=== PATIENT | female | born 1960 | race African-American/Black ===

== ENCOUNTER 2017-03-16 20:31 | Inpatient (IN) | payer OTHER ==
[2017-03-16 21:01] VITALS: BMI 31.1
[2017-03-16] MEDS ORDERED: diphenhydrAMINE HCL 50 MG CAPSULE PO PRN (21:03)
[2017-03-16] MEDS ORDERED: LOPERAMIDE HCL 2 MG CAPSULE PO PRN (21:03)
[2017-03-16] MEDS ORDERED: MAGNESIUM CITRATE 300 ML BOTTLE PO PRN (21:03)
[2017-03-16] MEDS ORDERED: NICOTINE POLACRILEX 2 MG GUM BUC PRN (21:03)
[2017-03-16] MEDS ORDERED: MAG HYDROX/AL HYDROX/SIMETH 30 ML UNIT-DOSE CUP PO PRN (21:03)
[2017-03-16] MEDS ORDERED: chlordiazePOXIDE HCL 25 MG CAPSULE PO ONE (21:03)
[2017-03-16] MEDS ORDERED: chlordiazePOXIDE HCL 25 MG CAPSULE PO PRN (21:03)
[2017-03-16] MEDS ORDERED: hydrOXYzine PAMOATE 50 MG CAPSULE (FP) PO PRN (21:03)
[2017-03-16] MEDS ORDERED: P-EPHED 60MG/TRIPROLIDI 2.5MG TABLET PO PRN (21:03)
[2017-03-16] MEDS ORDERED: MENTHOL/PHENOL 1 EACH UD MM PRN (21:03)
[2017-03-16] MEDS ORDERED: guaiFENesin/D-METHORPHAN HB 10 ML UNIT-DOSE CUPS PO PRN (21:03)
[2017-03-16] MEDS ORDERED: MAGNESIUM HYDROX 2400MG/30ML ORAL SUSPENSION 30 ML CUP PO PRN (21:03)
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
[2017-03-16] MEDS ORDERED: ONDANSETRON *ODT* 4 MG TABLET SL PRN (21:09)
[2017-03-16] MEDS: THIAMINE HCL 100 MG TABLET (FP) PO SCH (22:45)
[2017-03-16] MEDS: CYCLOBENZAPRINE HCL 10 MG TABLET (FP) PO PRN (22:45)
[2017-03-16] MEDS: RANITIDINE HCL 150 MG TABLET (FP) PO SCH (22:45)
[2017-03-16] MEDS: GABAPENTIN 100 MG CAPSULE (FP) PO SCH (22:45)
[2017-03-16] MEDS: chlordiazePOXIDE HCL 25 MG CAPSULE PO SCH (22:45)
[2017-03-16] MEDS: ACETAMINOPHEN 325 MG TABLET (FP) PO PRN (22:50)
[2017-03-17 00:39] LABS: URINE APPEARANCE SLCLOUDY; URINE BILIRUBIN NEGATIVE (NEGATIVE); URINE BLOOD NEGATIVE (NEGATIVE); URINE COLOR LTYELLOW; URINE GLUCOSE (UA) NEGATIVE (NEGATIVE); URINE KETONE NEGATIVE (NEGATIVE); URINE LEUK ESTERASE NEGATIVE (NEGATIVE); URINE NITRITE NEGATIVE (NEGATIVE); URINE PROTEIN NEGATIVE (NEGATIVE); URINE UROBILINOGEN NEGATIVE mg/dL (0.2-1.0)
[2017-03-17] MEDS: chlordiazePOXIDE HCL 25 MG CAPSULE PO SCH ×4 (06:11→22:28)
--- NOTE | 2017-03-17 09:20 | EKG ---
Test Reason : Blood Pressure : / mmHG Vent. Rate : 077 BPM Atrial Rate : 077 BPM P-R Int : 120 ms QRS Dur : 082 ms QT Int : 392 ms P-R-T Axes : 069 041 047 degrees QTc Int : 443 ms NORMAL SINUS RHYTHM NO PREVIOUS ECGS AVAILABLE Confirmed by TREMAYNE MEDELLIN MD ([id number]) on 03/17/2017 9:19:33 AM Referred By: Confirmed By:TREMAYNE MEDELLIN MD
[2017-03-17 10:22] LABS: MCH 30.1 pg (25.7-33.7); MCHC 32.9 g/dl (32.0-36.0); MEAN CELL VOLUME 91.6 fl (80-96); MEAN PLT VOLUME 7.5 fl (7.5-11.1); PLATELET COUNT 283 K/MM3 (134-434); RDW 15.7 % (11.6-15.6); WHITE BLOOD COUNT 5.1 K/mm3 (4.0-10.0)
[2017-03-17] MEDS: RANITIDINE HCL 150 MG TABLET (FP) PO SCH ×2 (10:37→22:29)
[2017-03-17] MEDS: LIDOCAINE 5% TOPICAL PATCH TP SCH (10:37)
[2017-03-17] MEDS: NICOTINE 14 MG/24 HOURS TOPICAL PATCH TD SCH (10:37)
[2017-03-17] MEDS: PRENATAL VITAMINS W/ FOLIC ACID TABLET (FP) PO SCH (10:37)
[2017-03-17 10:44] LABS: ANION GAP 6 (8-16); CALCIUM 8.4 mg/dL (8.5-10.1); CO2 30 mmol/L (21-32); CREATININE 0.8 mg/dL (0.55-1.02); GLUCOSE,RANDOM 77 mg/dL (74-106); SGOT/AST 23 U/L (15-37); SGPT/ALT 19 U/L (12-78)
[2017-03-17 10:46] LABS: ALK PHOS 129 U/L (45-117); BILIRUBIN,TOTAL 0.5 mg/dL (0.2-1.0); TOT PROT 5.8 g/dl (6.4-8.2)
--- NOTE | 2017-03-17 11:27 | PN ---
S CIWA - CIWA Score Nausea/Vomitin-No Nausea/No Vomiting Muscle Tremors: 4-Moderate,w/Arms Extend Anxiety: 3 Agitation: 4-Moderately Restless Paroxysmal Sweats: 3 Orientation: 0-Oriented Tacttile Disturbances: 0-None Auditory Disturbances: 0-None Visual Disturbances: 0-None Headache: 0-None Present CIWA-Ar Total Score: 14 BHS Progress Note (SOAP) Subjective: nausea sweats shakes interrupted sleep Objective: 03/17/17 11:22 Vital Signs Temperature 97.9 F 03/17/17 10:42 Pulse Rate 88 03/17/17 10:42 Respiratory Rate 18 03/17/17 10:42 Blood Pressure 135/94 03/17/17 10:42 O2 Sat by Pulse Oximetry (%) Laboratory Tests 03/17/17 03/17/17 03/17/17 00:01 07:00 07:00 WBC 5.1 RBC 3.70 Hgb 11.2 Hct 33.9 MCV 91.6 MCH 30.1 MCHC 32.9 RDW 15.7 H Plt Count 283 MPV 7.5 Sodium 147 H Potassium 4.1 Chloride 111 H Carbon Dioxide 30 Anion Gap 6 L BUN 11 Creatinine 0.8 Creat Clearance w eGFR > 60 Random Glucose 77 Calcium 8.4 L Total Bilirubin 0.5 AST 23 ALT 19 Alkaline Phosphatase 129 H Total Protein 5.8 L Albumin 3.0 L Urine Color Ltyellow Urine Appearance Slcloudy Urine pH 5.0 Ur Specific [place] 1.020 Urine Protein Negative Urine Glucose (UA) Negative Urine Ketones Negative Urine Blood Negative Urine Nitrite Negative Urine Bilirubin Negative Urine Urobilinogen Negative Ur Leukocyte Esterase Negative awake/alert ambulating no acute distress Assessment: 03/17/17 11:23 withdrawal sx Plan: continue detox increase fluids
--- NOTE | 2017-03-17 14:17 | CONSULT ---
[facility] Psychiatric Consult - Data Date of interview: 03/17/17 Admission source: [facility] Identifying data: First admission to [facility] [place] for this 56 y/o AA female seeking detox treatment on for alcohol and cocaine dependence.Patient is ,a mother of two,domiciled and reportedly employed. Substance Abuse History: Confirmed by the patient in this session. Smoking Cessation. Smoking history: Current every day smoker. Have you smoked in the past 12 months: Yes. Aproximately how many cigarettes per day: 4. Hx Chewing Tobacco Use: No. Initiated information on smoking cessation: Yes. 'Breaking Loose' booklet given: 03/16/17. - Substance & Tx. History. Hx Alcohol Use: Yes. Hx Substance Use: Yes. Substance Use Type: Alcohol, Cocaine. Hx Substance Use Treatment: Yes (2009). - Substances Abused. Alcohol. Route: Oral. Frequency: Daily. Amount used: LIQOUR- 2 PINTS. Age of first use: 35. Date of Last Use: 03/16/17 Medical History: GERD,shoulder pain (right shoulder) and neuropathy. Psychiatric History: No reported history of psychiatric hospitalizations.Patient indicates that she " used to see " a private psychiatrist in the past for depression.Was prescribed duloxetine 60 mg (30 mg twice a day).No longer in regular psychiatric OPD care (psychiatrist relocated elsewhere).For months now,the patient has relied on her primary care physician for medications refills.No history of suicide attempts. Physical/Sexual Abuse/Trauma History: Patient denies. Additional Comment: Urine Drug Screen Results: MARINO-Cocaine, BZO- Benzodiazepines.Noted. Mental Status Exam - Mental Status Exam Alert and Oriented to: Time, Place, Person Cognitive Function: Good Patient Appearance: Well Groomed Mood: Hopeful, Euthymic Affect: Appropriate, Normal Range Patient Behavior: Appropriate, Cooperative Speech Pattern: Clear Voice Loudness: Normal Thought Process: Intact, Goal Oriented Thought Disorder: Not Present Hallucinations: Denies Suicidal Ideation: Denies Homicidal Ideation: Denies Insight/Judgement: Poor Sleep: Poorly (refuses ambien due to poor tolerability : drowsiness in the morning), Difficulty falling asleep Appetite: Good Muscle strength/Tone: Normal Gait/Station: Normal Psychiatric Findings - Problem List ([place] 1, 2,3) (1) Alcohol dependence with uncomplicated withdrawal Current Visit: Yes Status: Chronic (2) Cocaine dependence Current Visit: Yes Status: Acute (3) Nicotine dependence Current Visit: Yes Status: Chronic Qualifiers: Nicotine product type: cigarettes Substance use status: uncomplicated Qualified Code(s): F17.210 - Nicotine dependence, cigarettes, uncomplicated (4) Depressive disorder Current Visit: Yes Status: Chronic Comment: Self-report.On medications (verified by recent pharmacy claims). (5) Neuropathy Current Visit: Yes Status: Chronic - Initial Treatment Plan Initial Treatment Plan: Psychoeducation.Detoxification.Medications : cymbalta 30 mg po bid + benadryl 50 mg po hs prn.Side effects/benefits of both drugs are discussed with patient.She agrees with this careplan.Observation.Recent pharmacy claims reviewed : medication verified (script dated 01/06/17 at [facility] # [id number]).
[2017-03-17] MEDS: CYCLOBENZAPRINE HCL 10 MG TABLET (FP) PO PRN (22:28)
[2017-03-17] MEDS: GABAPENTIN 100 MG CAPSULE (FP) PO SCH (22:28)
[2017-03-17] MEDS: THIAMINE HCL 100 MG TABLET (FP) PO SCH (22:29)
[2017-03-17] MEDS: LIDOCAINE PATCH REMOVAL MC SCH (22:30)
[2017-03-17] MEDS: DULoxetine HCL 30 MG CAPSULE.DR (FP) PO SCH (23:33)
[2017-03-18] MEDS: chlordiazePOXIDE HCL 25 MG CAPSULE PO SCH ×3 (05:51→17:40)
[2017-03-18] MEDS: RANITIDINE HCL 150 MG TABLET (FP) PO SCH ×2 (10:31→22:26)
[2017-03-18] MEDS: PRENATAL VITAMINS W/ FOLIC ACID TABLET (FP) PO SCH (10:31)
[2017-03-18] MEDS: LIDOCAINE 5% TOPICAL PATCH TP SCH (10:32)
[2017-03-18] MEDS: DULoxetine HCL 30 MG CAPSULE.DR (FP) PO SCH ×2 (10:32→23:29)
[2017-03-18] MEDS: NICOTINE 14 MG/24 HOURS TOPICAL PATCH TD SCH (10:32)
[2017-03-18] MEDS: ACETAMINOPHEN 325 MG TABLET (FP) PO PRN (10:33)
--- NOTE | 2017-03-18 12:05 | PN ---
S CIWA - CIWA Score Nausea/Vomitin Muscle Tremors: 4-Moderate,w/Arms Extend Anxiety: 4-Mod. Anxious/Guarded Agitation: 4-Moderately Restless Paroxysmal Sweats: 3 Orientation: 0-Oriented Tacttile Disturbances: 1-Very Mild Itch/Numbness Auditory Disturbances: 0-None Visual Disturbances: 0-None Headache: 1-Very Mild CIWA-Ar Total Score: 20 BHS Progress Note (SOAP) Subjective: nausea, sweats, interrupted sleep, anxiety, tremors Objective: 03/18/17 12:04 Vital Signs - 8 hr 03/18/17 03/18/17 06:00 10:26 Temperature 97.5 F L 97.9 F Pulse Rate 56 L 84 Respiratory 18 18 Rate Blood Pressure 130/76 128/83 Laboratory Tests 03/16/17 03/17/17 03/17/17 07:00 00:01 07:00 WBC 5.1 RBC 3.70 Hgb 11.2 Hct 33.9 MCV 91.6 MCH 30.1 MCHC 32.9 RDW 15.7 H Plt Count 283 MPV 7.5 Sodium Potassium Chloride Carbon Dioxide Anion Gap BUN Creatinine Creat Clearance w eGFR Random Glucose Calcium Total Bilirubin AST ALT Alkaline Phosphatase Total Protein Albumin Urine Color Ltyellow Urine Appearance Slcloudy Urine pH 5.0 Ur Specific [place] 1.020 Urine Protein Negative Urine Glucose (UA) Negative Urine Ketones Negative Urine Blood Negative Urine Nitrite Negative Urine Bilirubin Negative Urine Urobilinogen Negative Ur Leukocyte Esterase Negative RPR Titer Hepatitis C Antibody <0.1 03/17/17 03/17/17 07:00 07:00 WBC RBC Hgb Hct MCV MCH MCHC RDW Plt Count MPV Sodium 147 H Potassium 4.1 Chloride 111 H Carbon Dioxide 30 Anion Gap 6 L BUN 11 Creatinine 0.8 Creat Clearance w eGFR > 60 Random Glucose 77 Calcium 8.4 L Total Bilirubin 0.5 AST 23 ALT 19 Alkaline Phosphatase 129 H Total Protein 5.8 L Albumin 3.0 L Urine Color Urine Appearance Urine pH Ur Specific [place] Urine Protein Urine Glucose (UA) Urine Ketones Urine Blood Urine Nitrite Urine Bilirubin Urine Urobilinogen Ur Leukocyte Esterase RPR Titer Nonreactive Hepatitis C Antibody Assessment: 03/18/17 12:05 withrickey sx Plan: cont detox, fluids
[2017-03-18] MEDS: PANTOPRAZOLE 40 MG TABLET (FP) PO SCH (13:20)
[2017-03-18] MEDS: THIAMINE HCL 100 MG TABLET (FP) PO SCH (22:25)
[2017-03-18] MEDS: chlordiazePOXIDE 5 MG CAPSULE PO SCH (22:26)
[2017-03-18] MEDS: GABAPENTIN 100 MG CAPSULE (FP) PO SCH (22:26)
[2017-03-18] MEDS: CYCLOBENZAPRINE HCL 10 MG TABLET (FP) PO PRN (22:26)
[2017-03-18] MEDS: LIDOCAINE PATCH REMOVAL MC SCH (23:30)
[2017-03-19] MEDS: chlordiazePOXIDE 5 MG CAPSULE PO SCH ×3 (05:37→18:03)
[2017-03-19] MEDS ORDERED: PANTOPRAZOLE 40 MG TABLET (FP) PO SCH (10:00)
[2017-03-19] MEDS: DULoxetine HCL 30 MG CAPSULE.DR (FP) PO SCH ×2 (10:33→23:02)
[2017-03-19] MEDS: RANITIDINE HCL 150 MG TABLET (FP) PO SCH ×2 (10:33→23:05)
[2017-03-19] MEDS: CYCLOBENZAPRINE HCL 10 MG TABLET (FP) PO PRN (10:33)
[2017-03-19] MEDS: PRENATAL VITAMINS W/ FOLIC ACID TABLET (FP) PO SCH (10:33)
[2017-03-19] MEDS: PANTOPRAZOLE 40 MG TABLET (FP) PO SCH (10:33)
[2017-03-19] MEDS: LIDOCAINE 5% TOPICAL PATCH TP SCH (10:34)
[2017-03-19] MEDS: NICOTINE 14 MG/24 HOURS TOPICAL PATCH TD SCH (10:35)
--- NOTE | 2017-03-19 10:42 | PN ---
BHS Progress Note (SOAP) Subjective: nausea, sweats, interrupted sleep, anxiety, tremors Objective: 03/19/17 10:41 Vital Signs - 8 hr 03/19/17 03/19/17 03:30 06:29 Temperature 96.4 F L Pulse Rate 59 L Respiratory 18 16 Rate Blood Pressure 115/50 Laboratory Tests 03/16/17 03/17/17 03/17/17 07:00 00:01 07:00 WBC 5.1 RBC 3.70 Hgb 11.2 Hct 33.9 MCV 91.6 MCH 30.1 MCHC 32.9 RDW 15.7 H Plt Count 283 MPV 7.5 Sodium Potassium Chloride Carbon Dioxide Anion Gap BUN Creatinine Creat Clearance w eGFR Random Glucose Calcium Total Bilirubin AST ALT Alkaline Phosphatase Total Protein Albumin Urine Color Ltyellow Urine Appearance Slcloudy Urine pH 5.0 Ur Specific [place] 1.020 Urine Protein Negative Urine Glucose (UA) Negative Urine Ketones Negative Urine Blood Negative Urine Nitrite Negative Urine Bilirubin Negative Urine Urobilinogen Negative Ur Leukocyte Esterase Negative RPR Titer Hepatitis C Antibody <0.1 03/17/17 03/17/17 07:00 07:00 WBC RBC Hgb Hct MCV MCH MCHC RDW Plt Count MPV Sodium 147 H Potassium 4.1 Chloride 111 H Carbon Dioxide 30 Anion Gap 6 L BUN 11 Creatinine 0.8 Creat Clearance w eGFR > 60 Random Glucose 77 Calcium 8.4 L Total Bilirubin 0.5 AST 23 ALT 19 Alkaline Phosphatase 129 H Total Protein 5.8 L Albumin 3.0 L Urine Color Urine Appearance Urine pH Ur Specific [place] Urine Protein Urine Glucose (UA) Urine Ketones Urine Blood Urine Nitrite Urine Bilirubin Urine Urobilinogen Ur Leukocyte Esterase RPR Titer Nonreactive Hepatitis C Antibody Assessment: 03/19/17 10:41 [email or web address] sx Plan: cont detox
[2017-03-19] MEDS: FLUTICASONE PROP 0.05% 16 GM NASAL SPRAY NS SCH (14:51)
[2017-03-19] MEDS: THIAMINE HCL 100 MG TABLET (FP) PO SCH (23:02)
[2017-03-19] MEDS: chlordiazePOXIDE HCL 10 MG CAPSULE PO SCH (23:02)
[2017-03-19] MEDS: LIDOCAINE PATCH REMOVAL MC SCH (23:02)
[2017-03-19] MEDS: GABAPENTIN 100 MG CAPSULE (FP) PO SCH (23:02)
[2017-03-20] MEDS: chlordiazePOXIDE HCL 10 MG CAPSULE PO SCH (05:57)
[2017-03-20 06:49] VITALS: TEMP 97.3
[2017-03-20] MEDS: RANITIDINE HCL 150 MG TABLET (FP) PO SCH (09:11)
[2017-03-20] MEDS: DULoxetine HCL 30 MG CAPSULE.DR (FP) PO SCH (09:11)
[2017-03-20] MEDS: PRENATAL VITAMINS W/ FOLIC ACID TABLET (FP) PO SCH (09:12)
[2017-03-20] MEDS: FLUTICASONE PROP 0.05% 16 GM NASAL SPRAY NS SCH (09:12)
[2017-03-20] MEDS: PANTOPRAZOLE 40 MG TABLET (FP) PO SCH (09:13)
[2017-03-20 09:38] VITALS: BP 103/69; PULSE 94
--- NOTE | 2017-03-20 09:45 | DS ---
[facility] Detox Discharge Summary Admission Date: 03/16/17 Discharge Date: 03/20/17 - History Present History: Alcohol Dependence, Cocaine Dependence Pertinent Past History: nicotine dependence, insomnia, anxiety, depression - Physical Exam Results Vital Signs: Vital Signs Temperature 97.3 F L 03/20/17 06:49 Pulse Rate 94 H 03/20/17 09:37 Respiratory Rate 16 03/20/17 09:37 Blood Pressure 103/69 03/20/17 09:37 O2 Sat by Pulse Oximetry (%) Laboratory Tests 03/16/17 03/17/17 03/17/17 07:00 00:01 07:00 WBC 5.1 RBC 3.70 Hgb 11.2 Hct 33.9 MCV 91.6 MCH 30.1 MCHC 32.9 RDW 15.7 H Plt Count 283 MPV 7.5 Sodium Potassium Chloride Carbon Dioxide Anion Gap BUN Creatinine Creat Clearance w eGFR Random Glucose Calcium Total Bilirubin AST ALT Alkaline Phosphatase Total Protein Albumin Urine Color Ltyellow Urine Appearance Slcloudy Urine pH 5.0 Ur Specific [place] 1.020 Urine Protein Negative Urine Glucose (UA) Negative Urine Ketones Negative Urine Blood Negative Urine Nitrite Negative Urine Bilirubin Negative Urine Urobilinogen Negative Ur Leukocyte Esterase Negative RPR Titer Hepatitis C Antibody <0.1 03/17/17 03/17/17 07:00 07:00 WBC RBC Hgb Hct MCV MCH MCHC RDW Plt Count MPV Sodium 147 H Potassium 4.1 Chloride 111 H Carbon Dioxide 30 Anion Gap 6 L BUN 11 Creatinine 0.8 Creat Clearance w eGFR > 60 Random Glucose 77 Calcium 8.4 L Total Bilirubin 0.5 AST 23 ALT 19 Alkaline Phosphatase 129 H Total Protein 5.8 L Albumin 3.0 L Urine Color Urine Appearance Urine pH Ur Specific [place] Urine Protein Urine Glucose (UA) Urine Ketones Urine Blood Urine Nitrite Urine Bilirubin Urine Urobilinogen Ur Leukocyte Esterase RPR Titer Nonreactive Hepatitis C Antibody Pertinent Admission Physical Exam Findings: withdrawal sx - Treatment Hospital Course: Detox Protocol Followed, Detoxed Safely, Responded well, Discharged Condition Good, Rehab Referral Accepted Patient has Accepted a Rehab Referral to: Yes - Medication Discharge Medications: Ambulatory Orders Duloxetine HCl [Cymbalta -] 30 mg PO BID 03/16/17 Gabapentin [Neurontin -] 100 mg PO DAILY 03/16/17 Duloxetine HCl [Cymbalta -] 30 mg PO BID #60 capsule. 03/17/17 Esomeprazole Magnesium 40 mg PO DAILY 30 Days MDD 1 03/20/17 - Diagnosis (1) Cocaine dependence Current Visit: Yes Status: Acute (2) Alcohol dependence with uncomplicated withdrawal Current Visit: Yes Status: Chronic (3) Depressive disorder Current Visit: Yes Status: Chronic (4) Neuropathy Current Visit: Yes Status: Chronic (5) Nicotine dependence Current Visit: Yes Status: Chronic Qualifiers: Nicotine product type: cigarettes Substance use status: uncomplicated Qualified Code(s): F17.210 - Nicotine dependence, cigarettes, uncomplicated - AMA Did Patient Leave Against Medical Advice: No
== END 2017-03-20 09:15 | disposition home or self-care (01) | DRG 897 ==
LOC: YASAS 20:31 → Y6N 20:49
PROVIDERS: ADMIT Internal Medicine Addiction Medicine; ATTEND Internal Medicine Addiction Medicine
PROC: HZ2ZZZZ Detoxification Services for Substance Abuse Treatment (ICD-10-PCS; principal; 2017-03-16)
DX: F10.230 Alcohol dependence with withdrawal, uncomplicated (principal); F14.20 Cocaine dependence, uncomplicated; F17.210 Nicotine dependence, cigarettes, uncomplicated; F34.1 Dysthymic disorder; R00.0 Tachycardia, unspecified; G62.9 Polyneuropathy, unspecified; Z98.84 Bariatric surgery status
CPT/HCPCS: 36415; 80053; 81003; 85027; 86593; 86803; 93005; 93010

== ENCOUNTER 2017-09-04 12:35 | Emergency (ER) | payer OTHER ==
[2017-09-04 13:37] VITALS: BP 156/91; PULSE 101; TEMP 98.2; BMI 30.5
[2017-09-04] MEDS ORDERED: FOLIC ACID INJECTION - 1 MG, THIAMINE HCL 100 MG, MULTIVIT INJECTION ADULT 10 ML in SOD... IVPB ONE (15:18)
--- NOTE | 2017-09-04 15:26 | PDOC ---
History of Present Illness - General History Source: Patient - History of Present Illness Timing/Duration: other (this am) Associated Symptoms: reports: malaise, nausea/vomiting, weakness. denies: chest pain, cough, fever/chills, seizure, shortness of breath <Dillan Levy - Last Filed: 09/04/17 18:34> <Toya Guillaume - Last Filed: 09/05/17 11:57> - General Chief Complaint: Alcohol intoxication Stated Complaint: INTOX Time Seen by Provider: 09/04/17 14:46 Past History - Past Medical History Anemia: No Asthma: No Cancer: No Cardiac Disorders: No CVA: No COPD: No CHF: No Dementia: No Diabetes: No GI Disorders: No Disorders: No HTN: No Hypercholesterolemia: No Kidney Stones: No Liver Disease: No Psychiatric Problems: Yes (alcohol abuse) Seizures: Yes (from alcohol w/drawal x 1) Thyroid Disease: No - Surgical History Abdominal Surgery: Yes (lap band, gastric sleeve) Appendectomy: No Cardiac Surgery: No Cholecystectomy: No Lung Surgery: No Neurologic Surgery: No Orthopedic Surgery: No - Suicide/Smoking/Psychosocial Hx Smoking History: Never smoked Have you smoked in the past 12 months: No Number of Cigarettes Smoked Daily: 4 Information on smoking cessation initiated: No 'Breaking Loose' booklet given: 03/16/17 Hx Alcohol Use: Yes (last drink yesterday) Drug/Substance Use Hx: No Substance Use Type: Alcohol, Cocaine Hx Substance Use Treatment: Yes (2009) <Dillan Levy - Last Filed: 09/04/17 18:34> <Toya Guillaume - Last Filed: 09/05/17 11:57> - Past Medical History Allergies/Adverse Reactions: Allergies Allergy/AdvReac Type Severity Reaction Status Date / Time No Known Allergies Allergy Verified 03/16/17 20:47 Home Medications: Ambulatory Orders Gabapentin [Neurontin -] 100 mg PO DAILY 03/16/17 Duloxetine HCl [Cymbalta -] 30 mg PO BID #60 capsule. 03/17/17 Esomeprazole Magnesium 40 mg PO DAILY 30 Days cap MDD 1 03/20/17 Cephalexin [Keflex] 500 mg PO BID #14 capsule 09/04/17 Cephalexin [Keflex] 500 mg PO BID #14 capsule 09/04/17 Review of Systems - Review of Systems Constitutional: Yes: Malaise, Weakness. No: Chills, Fever Respiratory: No: Cough, Shortness of Breath Cardiac (ROS): No: Chest Pain ABD/GI: Yes: Nausea, Vomiting. No: Diarrhea, Abdominal cramping : No: Dysuria <Dillan Levy - Last Filed: 09/04/17 18:34> *Physical Exam - Vital Signs Last Vital Signs Temp Pulse Resp BP Pulse Ox 98.2 F 101 H 20 156/91 100 09/04/17 13:30 09/04/17 13:30 09/04/17 13:30 09/04/17 13:30 09/04/17 13:30 - Physical Exam General Appearance: Yes: Appropriately Dressed. No: Apparent Distress HEENT: positive: Normal Voice Neck: positive: Supple Respiratory/Chest: positive: Lungs Clear, Normal Breath Sounds. negative: Respiratory Distress Cardiovascular: positive: Regular Rate, S1, S2 Gastrointestinal/Abdominal: positive: Soft. negative: Tender Integumentary: positive: Dry, Warm Neurologic: positive: Fully Oriented, Alert, Normal Mood/Affect <Dillan Levy - Last Filed: 09/04/17 18:34> - Vital Signs Last Vital Signs Temp Pulse Resp BP Pulse Ox 98.2 F 101 H 20 156/91 100 09/04/17 13:30 09/04/17 13:30 09/04/17 13:30 09/04/17 13:30 09/04/17 13:30 <Toya Guillaume - Last Filed: 09/05/17 11:57> ED Treatment Course - LABORATORY CBC & Chemistry Diagram: 09/04/17 15:20 09/04/17 16:40 - RADIOLOGY Radiology Studies Ordered: Category Date Time Status CHEST X-RAY PORTABLE* [RAD] Stat Radiology 09/04/17 15:18 Ordered <Dillan Levy - Last Filed: 09/04/17 18:34> - LABORATORY CBC & Chemistry Diagram: 09/04/17 15:20 09/04/17 16:40 - ADDITIONAL ORDERS Additional order review: 09/04/17 15:20 RBC 4.28 MCV 93.5 MCHC 33.6 RDW 16.4 H MPV 7.4 L Neutrophils % 32.8 L Lymphocytes % 58.4 H Monocytes % 6.8 Eosinophils % 0.4 Basophils % 1.6 - Medications Given in the ED: ED Medications Discontinued Medications Generic Name Dose Route Start Last Admin Trade Name Ryan PRN Reason Stop Dose Admin Chlordiazepoxide HCl 50 mg 09/04/17 15:41 09/04/17 15:46 Librium - PO 09/04/17 15:42 50 mg ONCE ONE Administration Folic Acid 1 mg/ Thiamine HCl 1,000 mls @ 125 mls/hr 09/04/17 15:18 09/04/17 17:56 100 mg/ Multivitamins/Minerals IVPB 09/04/17 23:17 125 mls/hr 10 ml/ Sodium Chloride ONCE ONE Administration Ketorolac Tromethamine 30 mg 09/04/17 15:41 09/04/17 15:42 Toradol Injection - IVPUSH 09/04/17 15:42 30 mg ONCE ONE Administration Ondansetron HCl 4 mg 09/04/17 15:27 09/04/17 15:40 Zofran Injection IVPUSH 09/04/17 15:28 4 mg ONCE ONE Administration <Toya Guillaume - Last Filed: 09/05/17 11:57> Medical Decision Making - Medical Decision Making 09/04/17 15:20 56-year-old female, standing history of alcohol and cocaine abuse, anxiety and depression, here with complaint of not feeling well. Patient states her last inpatient detox was 03/02 and states she had stopped drinking for a while but started drinking again recently. States she drinks vodka all day. Last drink was last night. Admits to not eating as she should. This am awoke up with malaise and severe nausea. Denies abdominal pain, change in bowel movements, chest pain, shortness of breath, headache, dizziness, tremors or seizures See exam Malaise w/ nausea Well erika and in NAD w/ mild tachycardia to 101 R/o ETOH withdrawal (last drink last night) vs electrolyte/metabolic ab/nl, less likely infectious or cardiac -librium (no IV valium in facility) -lucius albarran -zofran -ekg -cxr -labs -reassess 09/04/17 17:57 EKG, chest x-ray and labs unremarkable. UTI on UA. Patient asymptomatic but will treat. Patient offered detox, but refuses [facility] as she states she was there in the past and did not like facility. States she will find her own detox facility to go to. Feeling well at this time. Banana bag in progress. Will discharge upon completion 09/04/17 18:34 09/04/17 18:46 Pt stable for discharge <Antonina LevyToño - Last Filed: 09/04/17 18:34> *DC/Admit/Observation/Transfer <MildredDillan - Last Filed: 09/04/17 18:34> - Attestations Physician Attestion: I reviewed the case with the mid-level practitioner and agree with the mid- level practitioner's assessment, diagnosis and disposition. <Toya Guillaume - Last Filed: 09/05/17 11:57> Diagnosis at time of Disposition: Malaise UTI (urinary tract infection) Qualifiers: Urinary tract infection type: acute cystitis Hematuria presence: without hematuria Qualified Code(s): N30.00 - Acute cystitis without hematuria - Discharge Dispostion Disposition: HOME Condition at time of disposition: Improved - Prescriptions Prescriptions: Cephalexin [Keflex] 500 mg PO BID #14 capsule Cephalexin [Keflex] 500 mg PO BID #14 capsule - Referrals Referrals: ON STAFF,NOT [Primary Care Provider] - - Patient Instructions Printed Discharge Instructions: DI for Urinary Tract Infection (UTI), DI for Alcohol Abuse Additional Instructions: You have refused [facility]. Please follow-up in detox facility of your choice. Return for worsening of symptoms Your labs show that you have a UTI. Take antibiotics as prescribed - Post Discharge Activity
[2017-09-04] MEDS ORDERED: ONDANSETRON 4 MG/2 ML VIAL IVPUSH ONE (15:27)
[2017-09-04] MEDS ORDERED: ONDANSETRON 4 MG/2 ML VIAL ONE (15:37)
[2017-09-04] MEDS ORDERED: KETOROLAC TROMETHAMINE 30 MG/1 ML VIAL ONE (15:37)
[2017-09-04 15:40] LABS: BASO % 1.6 % (0-2.0); EOS % 0.4 % (0-4.5); HEMOGLOBIN 13.5 GM/dL (10.7-15.3); LYMPH % 58.4 % (8-40); MCH 31.4 pg (25.7-33.7); MCHC 33.6 g/dl (32.0-36.0); MEAN CELL VOLUME 93.5 fl (80-96); MEAN PLT VOLUME 7.4 fl (7.5-11.1); MONO % 6.8 % (3.8-10.2); NEUT % 32.8 % (42.8-82.8); PLATELET COUNT 369 K/MM3 (134-434); RBC 4.28 M/mm3 (3.60-5.2); RDW 16.4 % (11.6-15.6); WHITE BLOOD COUNT 5.4 K/mm3 (4.0-10.0)
[2017-09-04] MEDS ORDERED: chlordiazePOXIDE HCL 25 MG CAPSULE PO ONE (15:41)
[2017-09-04] MEDS ORDERED: KETOROLAC TROMETHAMINE 30 MG/1 ML VIAL IVPUSH ONE (15:41)
[2017-09-04] MEDS ORDERED: chlordiazePOXIDE HCL 25 MG CAPSULE ONE (15:44)
[2017-09-04 16:11] LABS: URINE APPEARANCE CLEAR; URINE BILIRUBIN NEGATIVE (NEGATIVE); URINE BLOOD NEGATIVE (NEGATIVE); URINE COLOR YELLOW; URINE GLUCOSE (UA) NEGATIVE (NEGATIVE); URINE KETONE TRACE (NEGATIVE); URINE LEUK ESTERASE NEGATIVE (NEGATIVE); URINE NITRITE POSITIVE (NEGATIVE); URINE UROBILINOGEN NEGATIVE mg/dL (0.2-1.0)
[2017-09-04 16:13] LABS: URINE PROTEIN 1+ (NEGATIVE)
[2017-09-04 16:26] LABS: COCAINE, UR NEGATIVE ng/ml (CUTOFF=300); METHADONE, UR NEGATIVE ng/ml (CUTOFF=300); OPIATES, URI NEGATIVE ng/ml (CUTOFF=300); PHENCYCLIDINE,URINE NEGATIVE ng/ml (CUTOFF=25); URINE AMPHETAMINES NEGATIVE ng/ml (CUTOFF=500); URINE BARBITURATES NEGATIVE ng/ml (CUTOFF=200)
[2017-09-04 16:27] LABS: URINE BENZODIAZEPINES POSITIVE ng/ml (CUTOFF=200)
[2017-09-04 16:30] LABS: EPI CELLS RARE /HPF (FEW); URINE BACTERIA MODERATE /hpf (NONE SEEN); URINE HYALINE CAST 1 /lpf; URINE MUCUS FEW
[2017-09-04 17:25] LABS: ALBUMIN 3.6 g/dl (3.4-5.0); ANION GAP 7 (8-16); BILIRUBIN,TOTAL 0.3 mg/dL (0.2-1.0); BLOOD UREA NITROGEN 13 mg/dL (7-18); CALCIUM 8.4 mg/dL (8.5-10.1); CHLORIDE 109 mmol/L (98-107); CO2 25 mmol/L (21-32); CREATININE 0.7 mg/dL (0.55-1.02); GLUCOSE,RANDOM 104 mg/dL (74-106); POTASSIUM 4.1 mmol/L (3.5-5.1); SGOT/AST 45 U/L (15-37); SGPT/ALT 27 U/L (12-78); SODIUM 141 mmol/L (136-145); TOT PROT 6.8 g/dl (6.4-8.2)
[2017-09-04 17:26] LABS: ALK PHOS 154 U/L (45-117); LIPASE 284 U/L (73-393)
--- NOTE | 2017-09-05 08:54 | EKG ---
Test Reason : Blood Pressure : / mmHG Vent. Rate : 093 BPM Atrial Rate : 093 BPM P-R Int : 116 ms QRS Dur : 072 ms QT Int : 368 ms P-R-T Axes : 044 005 024 degrees QTc Int : 457 ms POOR DATA QUALITY, INTERPRETATION MAY BE ADVERSELY AFFECTED NORMAL SINUS RHYTHM POSSIBLE LEFT ATRIAL ENLARGEMENT BORDERLINE ECG WHEN COMPARED WITH ECG OF 16-MAR-2017 21:39, NO SIGNIFICANT CHANGE WAS FOUND Confirmed by Garett Wagoner MD ([id number]) on 09/05/2017 8:54:00 AM Referred By: Confirmed By:Garett Wagoner MD
== END 2017-09-04 19:11 | disposition home or self-care (01) ==
LOC: JER 12:35
PROC: 3E033GC Introduction of Other Therapeutic Substance into Peripheral Vein, Percutaneous Approach (ICD-10-PCS; principal; 2017-09-04)
PROC: 3E0333Z Introduction of Anti-inflammatory into Peripheral Vein, Percutaneous Approach (ICD-10-PCS; 2017-09-04)
PROC: 3E033GC Introduction of Other Therapeutic Substance into Peripheral Vein, Percutaneous Approach (ICD-10-PCS; 2017-09-04)
DX: N30.00 Acute cystitis without hematuria (principal); F10.10 Alcohol abuse, uncomplicated; F14.10 Cocaine abuse, uncomplicated
CPT/HCPCS: 36415; 71045-TC-FY; 80053; 80307; 81003; 81015; 83690; 85025; 87086; 87186; 93005; 93010; 99283-25